=== PATIENT | male | born 1980 | race African-American/Black ===

== ENCOUNTER 2020-02-17 06:31 | Emergency (ER) | payer OTHER ==
[~2020-02-17] VITALS: Ht 172.7 cm; Wt 79.4 kg
[2020-02-17] MEDS ORDERED: GOOD200C PO (06:37)
[2020-02-17] MEDS ORDERED: thera flu PO (06:37)
[2020-02-17] MEDS ORDERED: IBUP200C89 PO (06:37)
[2020-02-17 06:58] VITALS: BP 136/84
[2020-02-17] MEDS ORDERED: AUGM875T28 PO (07:59)
== END 2020-02-17 08:10 | disposition home or self-care (01) ==
LOC: M ED 06:31
DX: J02.0 Streptococcal pharyngitis (principal); F17.200 Nicotine dependence, unspecified, uncomplicated; Z79.1 Long term (current) use of non-steroidal anti-inflammatories (NSAID)
CPT/HCPCS: 87880; 99284; U0002

== ENCOUNTER 2020-09-13 09:17 | Emergency (ER) | payer OTHER ==
[~2020-09-13] VITALS: Ht 172.7 cm; Wt 87.5 kg
[~2020-09-13 09:17] MED LIST: AUGM875T28 PO; GOOD200C PO; IBUP200C89 PO; thera flu PO
[2020-09-13 09:18] VITALS: BP 177/91
--- OUTSIDE RECORDS SUMMARY | 2020-09-13 09:23 | CCD ---
Author Author [facility] Organization [facility] Address Unknown Phone Unavailable Care Team Providers Care Centrifugal Spinner Name Role Phone Dille, Kal Angella DDS Unavailable Unavailable Dille, E Angella DDS Unavailable Unavailable Dille, E Angella DDS Unavailable Unavailable Dille, E Angella DDS Unavailable Unavailable LAROCK, Gabino GEE PRINCIPAL CYBER ENGINEER Unavailable Unavailable LAROCK, Gabino GEE PRINCIPAL CYBER ENGINEER Unavailable Unavailable LAROCK, Gabino GEE PRINCIPAL CYBER ENGINEER Unavailable Unavailable LAROCK, Gabino GEE PRINCIPAL CYBER ENGINEER Unavailable Unavailable LAROCK, Gabino GEE PRINCIPAL CYBER ENGINEER Unavailable Unavailable LAROCK, Gabino GEE PRINCIPAL CYBER ENGINEER Unavailable Unavailable LAROCK, Gabino GEE PRINCIPAL CYBER ENGINEER Unavailable Unavailable LAROCK, Gabino GEE PRINCIPAL CYBER ENGINEER Unavailable Unavailable LAROCK, Gabino GEE PRINCIPAL CYBER ENGINEER Unavailable Unavailable LAROCK, Gabino GEE PRINCIPAL CYBER ENGINEER Unavailable Unavailable LAROCK, Gabino GEE PRINCIPAL CYBER ENGINEER Unavailable Unavailable LAROCK, Gabino GEE PRINCIPAL CYBER ENGINEER Unavailable Unavailable LAROCK, Gabino GEE PRINCIPAL CYBER ENGINEER Unavailable Unavailable LAROCK, Gabino GEE PRINCIPAL CYBER ENGINEER Unavailable Unavailable LAROCK, Gabino GEE PRINCIPAL CYBER ENGINEER Unavailable Unavailable LAROCK, Gabino GEE PRINCIPAL CYBER ENGINEER Unavailable Unavailable LAROCK, Gabino GEE PRINCIPAL CYBER ENGINEER Unavailable Unavailable LAROCK, Gabino GEE PRINCIPAL CYBER ENGINEER Unavailable Unavailable LAROCK, Gabino GEE PRINCIPAL CYBER ENGINEER Unavailable Unavailable LAROCK, Gabino GEE PRINCIPAL CYBER ENGINEER Unavailable Unavailable LAROCK, Gabino GEE PRINCIPAL CYBER ENGINEER Unavailable Unavailable Re-disclosure Warning The records that you are about to access may contain information from federally-assisted alcohol or drug abuse programs. If such information is present, then the following federally mandated warning applies: This information has been disclosed to you from records protected by federal confidentiality rules (42 CFR part 2). The federal rules prohibit you from making any further disclosure of this information unless further disclosure is expressly permitted by the written consent of the person to whom it pertains or as otherwise permitted by 42 CFR part 2. A general authorization for the release of medical or other information is NOT sufficient for this purpose. The Federal rules restrict any use of the information to criminally investigate or prosecute any alcohol or drug abuse patient.The records that you are about to access may contain highly sensitive health information, the redisclosure of which is protected by Article 27-F of the [facility] Public Health law. If you continue you may have access to information: Regarding HIV / AIDS; Provided by facilities licensed or operated by the [facility] Office of Mental Health; or Provided by the [facility] Office for People With Developmental Disabilities. If such information is present, then the following [facility] mandated warning applies: This information has been disclosed to you from confidential records which are protected by state law. State law prohibits you from making any further disclosure of this information without the specific written consent of the person to whom it pertains, or as otherwise permitted by law. Any unauthorized further disclosure in violation of state law may result in a fine or shelter sentence or both. A general authorization for the release of medical or other information is NOT sufficient authorization for further disc losure. Encounters Encounter Providers Location Date Indications Data Source(s ) O Attender: GERARD BRADLEY NP 08/2020 08:06:59 AM EST - 09/09/2020 08:34:45 AM EST [place] ([facility] ) Outpatient Attender: Angella Ballesteros DDS [facility] 03/04/2020 12:26:01 P [facility] Outpatient Attender: Angella Ballesteros DDS [facility] 02/22/2020 10:07:01 A [facility] Outpatient Attender: Angella Ballesteros DDS [facility] 02/22/2020 10:06:02 A [facility] Outpatient Attender: Angella Ballesteros DDS [facility] 01/22/2020 07:09:01 A [facility] Outpatient Attender: Angella Ballesteros DDS [facility] 01/16/2020 08:04:09 P [facility] Outpatient Attender: Angella Ballesteros DDS [facility] 01/11/2020 12:51:01 P [facility] Outpatient Attender: Angella Ballesteros DDS [facility] 01/09/2020 11:35:01 A [facility] Outpatient Attender: Angella Ballesteros DDS [facility] 01/09/2020 11:32:01 A [facility] Outpatient Attender: Angella Ballesteros DDS [facility] 01/09/2020 11:31:01 A [facility] Outpatient Attender: Angella Ballesteros DDS [facility] 01/09/2020 11:28:01 A [facility] Outpatient Attender: Angella Ballesteros DDS [facility] 01/09/2020 10:22:01 A [facility] Outpatient Attender: Angella Ballesteros DDS [facility] 01/09/2020 10:21:01 A [facility] Outpatient Attender: [facility]ella [facility] 01/09/2020 09:22:00 A [facility] Outpatient Attender: Angella [facility] 01/09/2020 09:18:00 A [facility] Outpatient Attender: Angella Ballesteros DDS [facility] 01/09/2020 08:28:00 A [facility] Medications Medication Brand Name Start Date Product Form Dose Route Admi nistrative Instructions Pharmacy Instructions Status Indications Reaction Description Data Source(s) 10,000 unit- 1 mg/mL 06/25/2020 12:00:00 AM EST drops 10 INSTILL ONE TO TWO DROPS INTO AFFECTED EYE FOUR TIMES A DAY FOR 5 DAYS INSTILL ONE TO TWO DROPS INTO AFFECTED EYE FOUR TIMES A DAY FOR 5 DAYS SOLD: 06/25/2020 [facility] Insurance Providers Payer name Policy type / Coverage type Policy ID Covered green party ID Covered green party's relationship to davidson Policy [employer] Plan Information ON LICENSE OF [facility] [id number] [facility] [id number] Employee [id number] [place] [employer] [id number] Self [id number] Managed Care [place] P UNAVAILABLE S UNAVAILABLE Medicaid S UNAVAILABLE S UNAVAILA BLE ON LICENSE OF [facility] PLAN [facility] [place] [id number] SP [id number] D Managed Care [place] ([employer]) O UNAVAILABLE S UNAVAILABLE Medicaid Dental O UNAVAILABLE S UN AVAILABLE Self Pay P UNAVAILABLE S UNAVAILA BLE STPP Wrap [id number] [place] [id number] [place] [id number] [place] 7 [id number] MEDICAID [id number] L[place] [id number] [place] I [id number] Self [id number] L[place] C[place] HEA [id number] S [id number] [place] PI PI Medicaid [id number] MEDICAID M [id number] Self [id number] MEDICAID HEA [id number] MEDICAID W [id number] Problems, Conditions, and Diagnoses Code Display Name Description Problem Type Effective Dates Data Source(s) 521.03 DENTAL CARIES EXTENDING INTO PULP DENTAL CARIES EXTEND ING INTO PULP 01/09/2020 10:20:18 AM EDT [facility] Results ID Date Data Source [id number] 01/09/2020 09:20:53 AM EDT [facility] Current Problems: DENTAL CARIES EXTENDIN G INTO PULP (ICD-521.03) (NJB48-C68.63) Dental Chart: Procedures:Type - CDT Code - Description B - (D0220) Intraoral, periapical, first radiographic image on Tooth # 3 (Performed by Angella Ballesteros DDS) B - (D1999) Unspecified preventive procedure, by report on Tooth # 3 (Performed by Angella Ballesteros DDS) B - (D0140) Limited oral evaluation - problem focused on Tooth # 3 (Performed by Angella Ballesteros DDS) Chart Notes:nehal (Jan 09 2020 10:20AM): Additional PPE requirements due to COVID-19 in the dental setting, Pt checked in by front end drupal developer at 9:16, Professor Of Early Childhood Education brought back pt at 9:50. Taking to long to finish paperwork PD. N95, surgical mask, hair covering, gown S: CC:" I have a cyst on my gum." [facility] and was supposed to get it pulled but this covid thing happened and I didn't get it pulled. Now I moved to [place] and I still have this problem". O: RMHx (-)Per Pt Med History, no allergies. HPI: a year PL: 0 BP: 175/129 P: 109. PA # 3, periapical changes, positive to palpation. has existing large amalgam filling. A: DDS recommends ext or RCT. Patient wants it pulled , DX:caries into the pulpP :Refer to OS for ext of #3 DX; necrotic , with draining fistula. Patient to call for antibiotic if swelling he notice swelling. Informed Pt about new pain management policy of the clinic regarding about narcotic,told pt to alternate Ibuprophen 600- 800mg and tylenol 500mg every 4 to 6 hrs for pain when needed Assisted By: [place]: Angella Wiseman DDS by nehal (01/09/2020 10:20 AM): Tooth Notes and Watches:- Tooth 3 Note: Referred to Angella Cedeno DDS by jhoana (01/09/2020 10:09 AM): Assessment & Plan Problems:Added: DENTAL CARIES EXTENDING INTO PULP (ICD-521.03) (ZEK69-U83.63)Orders:Oral Surgery Referral [CPT-70619] Name Value Range Interpretation Code Description Data Ann Marie rce(s) Supporting Document(s) Procedure
--- OUTSIDE RECORDS SUMMARY | 2020-09-13 09:43 | CCD ---
Author Author [facility] Organization [facility] Address Unknown Phone Unavailable Care Team Providers Care French Weaver Name Role Phone Dille, Kal Angella DDS Unavailable Unavailable Dille, E Angella DDS Unavailable Unavailable Dille, E Angella DDS Unavailable Unavailable Dille, E Angella DDS Unavailable Unavailable LAROCK, Gabino GEE BRASS WIND INSTRUMENT MAKER Unavailable Unavailable LAROCK, Gabino GEE BRASS WIND INSTRUMENT MAKER Unavailable Unavailable LAROCK, Gabino GEE BRASS WIND INSTRUMENT MAKER Unavailable Unavailable LAROCK, Gabino GEE BRASS WIND INSTRUMENT MAKER Unavailable Unavailable LAROCK, Gabino GEE BRASS WIND INSTRUMENT MAKER Unavailable Unavailable LAROCK, Gabino GEE BRASS WIND INSTRUMENT MAKER Unavailable Unavailable LAROCK, Gabino GEE BRASS WIND INSTRUMENT MAKER Unavailable Unavailable LAROCK, Gabino GEE BRASS WIND INSTRUMENT MAKER Unavailable Unavailable LAROCK, Gabino GEE BRASS WIND INSTRUMENT MAKER Unavailable Unavailable LAROCK, Gabino GEE BRASS WIND INSTRUMENT MAKER Unavailable Unavailable LAROCK, Gabino GEE BRASS WIND INSTRUMENT MAKER Unavailable Unavailable LAROCK, Gabino GEE BRASS WIND INSTRUMENT MAKER Unavailable Unavailable LAROCK, Gabino GEE BRASS WIND INSTRUMENT MAKER Unavailable Unavailable LAROCK, Gaibno GEE BRASS WIND INSTRUMENT MAKER Unavailable Unavailable LAROCK, Gabino GEE BRASS WIND INSTRUMENT MAKER Unavailable Unavailable LAROCK, Gabino GEE BRASS WIND INSTRUMENT MAKER Unavailable Unavailable LAROCK, Gabino GEE BRASS WIND INSTRUMENT MAKER Unavailable Unavailable LAROCK, Gabino GEE BRASS WIND INSTRUMENT MAKER Unavailable Unavailable LAROCK, Gabino GEE BRASS WIND INSTRUMENT MAKER Unavailable Unavailable LAROCK, Gabino GEE BRASS WIND INSTRUMENT MAKER Unavailable Unavailable LAROCK, Gabino GEE BRASS WIND INSTRUMENT MAKER Unavailable Unavailable Re-disclosure Warning The records that [...] is protected by Article 27-F of the [facility] Public Health law. If you continue you may have access to information: Regarding HIV / AIDS; Provided by facilities licensed or operated by the [facility] Office of Mental Health; or Provided by the [facility] Office for People With Developmental Disabilities. If such information is present, then the following [facility] mandated warning applies: This information has [...] law may result in a fine or senior care sentence or both. A general authorization for the release of medical or other information is NOT sufficient authorization for further disc losure. Encounters Encounter Providers Location Date Indications Data Source(s ) O Attender: GERARD BRADLEY NP 08/2020 08:06:59 AM EST - 09/09/2020 08:34:45 AM EST [place] ([facility] ) Outpatient Att[facility]: [facility] 12:26:01 P [facility] Outpatient Attender: Angella Ballesteros DDS [facility] 02/22/2020 10:07:01 A [facility] Outpatient Attender: Angella Ballesteros DDS [facility] 02/22/2020 10:06:02 A [facility] Outpatient Attender: [facility] 01/22/2020 07:09:01 A [facility] Outpatient Attender: [facility] 01/16/2020 08:04:09 P [facility]patient Attender: [facility] 01/11/2020 12:51:01 P [facility] Outpatient [...] type / Coverage type Policy ID Covered republican ID Covered republican's relationship to davidson Policy [employer] Plan Information [facility] [id number] [facility] [id number] Employee [id number] [place] [employer] [id number] Self [id number] Managed Care [place] P UNAVAILABLE S UNAVAILABLE Medicaid S UNAVAILABLE S UNAVAILA BLE [facility] [id number] SP [id number] D Managed Care [place] ([employer]) O UNAVAILABLE S UNAVAILABLE Medicaid Dental O UNAVAILABLE S UN AVAILABLE Self Pay P UNAVAILABLE S UNAVAILA BLE STPP Wrap [id number] [place] [id number] 99 [id number] [place] [id number] Lena 7 [id number] MEDICAID [id number] [place] [id number] [place] [id number] Self [id number] L[place] [id number] S [id number] [place] PI PI Medicaid [id number] 99 [id number] MEDICAID M [id number] Self [id number] MEDICAID HEA [id number] SE [id number] MEDICAID W [id number] S [id number] Problems, Conditions, and Diagnoses Code Display Name Description Problem Type Effective Dates Data Source(s) 521.03 DENTAL CARIES EXTENDING INTO PULP DENTAL CARIES EXTEND ING INTO PULP 01/09/2020 10:20:18 AM EDT [facility] Results ID Date Data Source [id number] 01/09/2020 09:20:53 AM EDT [facility] Current Problems: DENTAL CARIES EXTENDIN G INTO PULP (ICD-521.03) (WQB64-V75.63) Dental Chart: Procedures:Type - CDT Code - [...] dental setting, Pt checked in by front office assistant at 9:16, Take Away Man brought back pt at 9:50. Taking to long to finish paperwork PD. N95, surgical mask, hair covering, gown S: CC:" I have a cyst on my gum." [facility] and was supposed to get it pulled but this covid thing happened and I didn't get it pulled. Now I moved to [place] and I still have this problem". O: [...] Problems:Added: DENTAL CARIES EXTENDING INTO PULP (ICD-521.03) (PCY00-B87.63)Orders:Oral Surgery Referral [CPT-[id number]] Name Value Range Interpretation Code Description Data Ann Marie rce(s) Supporting Document(s) Procedure
== END 2020-09-13 10:09 | disposition left against medical advice (07) ==
LOC: M ED 09:17
DX: Z53.21 Procedure and treatment not carried out due to patient leaving prior to being seen by health care provider (principal)

== ENCOUNTER 2020-11-09 08:33 | Emergency (ER) | payer OTHER ==
[~2020-11-09] VITALS: Ht 172.7 cm; Wt 89.3 kg
[2020-11-09] MEDS ORDERED: PENI500T PO (09:53)
[2020-11-09 10:36] VITALS: BP 160/90
== END 2020-11-09 10:43 | disposition home or self-care (01) ==
LOC: M ED 08:33
DX: J02.0 Streptococcal pharyngitis (principal); F17.200 Nicotine dependence, unspecified, uncomplicated